=== PATIENT | female | born 1995 | race Asian ===

== ENCOUNTER → 2020-01-01 12:28 | Outpatient (CLI) | payer OTHER, SELFPAY ==
--- NOTE | 2020-01-01 12:31 | DI.US.S_ITS ---
PROCEDURE: US OB FOLLOW UP INDICATIONS: FOLLOW-UP OUTSIDE ULTRASOUND OUTSIDE/PRIOR DATING DATA: Last menstrual period (LMP): 07/20/2019 . LMP-based estimated date of delivery (SHAD): 05/05/2020 . First dating scan (date and location): 12/02/2019 . Estimated date of delivery (SHAD) from first dating scan: 04/25/2020 . TECHNIQUE: Real-time scanning was performed of the fetus, with image documentation and biometric measurements. COMPARISON: Outside Facility, [facility], US OB > 14 WEEKS, 12/04/2019, 14:32. FINDINGS: General: A single living intrauterine gestation is present. Presentation: vertex. Placenta: Placental position is posterior , without previa. Amniotic fluid index: 12.2 cm, normal range is 5-24 cm. heart rate: 147 beats per minute. Maternal cervical canal: 3.7 cm long. Normal lower limit is 2.5 cm. Estimated gestational age from initial scan: 23 weeks 4 days Normal appearance of the four-chamber heart and cardiac outflow tracts. IMPRESSION: 1. Single living IUP redemonstrated and today's exam demonstrates normal appearance of the four-chamber heart and cardiac outflow tracts. Dictated by: Jorge SKY Interpreted: Gómez Polk MD on 01/01/2020 at 16:21 Approved by: Gómez Polk M.D. on 01/02/2020 at 11:42
== END ==
PROVIDERS: Referring Provider Obstetrics & Gynecology; Visit Provider Obstetrics & Gynecology
DX: Z36.2 Encounter for other antenatal screening follow-up (principal); Z3A.23 23 weeks gestation of pregnancy
CPT/HCPCS: 76816

== ENCOUNTER → 2020-01-27 10:02 | Outpatient (CLI) | payer OTHER, SELFPAY ==
[2020-01-27 12:40] LABS: GTT (PREG) 1 Hour PP 50gm Dose 137 mg/dL (76-139)
[2020-01-27 13:02] LABS: Hematocrit 35.6 % (36-46); Hemoglobin 12.1 g/dL (12.0-16.0)
== END ==
PROVIDERS: Referring Provider Obstetrics & Gynecology; Visit Provider Obstetrics & Gynecology
DX: Z34.02 Encounter for supervision of normal first pregnancy, second trimester (principal); Z3A.24 24 weeks gestation of pregnancy
CPT/HCPCS: 36415; 82950; 85014; 85018; 86850

== ENCOUNTER 2020-03-22 15:27 | Outpatient (CLI) | payer OTHER, SELFPAY ==
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
== END 2020-03-22 16:05 | disposition home or self-care (01) ==
LOC: LABOR 16:02 → OB 03-25 15:08
PROVIDERS: PCP Obstetrics & Gynecology; Referring Provider Obstetrics & Gynecology; Visit Provider Obstetrics & Gynecology
DX: O36.8330 Maternal care for abnormalities of the fetal heart rate or rhythm, third trimester, not applicable or unspecified (principal); Z3A.35 35 weeks gestation of pregnancy
CPT/HCPCS: 59025; G0378; G0379

== ENCOUNTER 2020-03-25 00:15 | Outpatient (CLI) | payer OTHER, SELFPAY ==
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
== END 2020-03-25 01:30 | disposition home or self-care (01) ==
LOC: LABOR 00:31 → OB 15:08
PROVIDERS: PCP Obstetrics & Gynecology; Referring Provider Obstetrics & Gynecology; Visit Provider Family Medicine
DX: O36.8130 Decreased fetal movements, third trimester, not applicable or unspecified (principal); Z3A.35 35 weeks gestation of pregnancy
CPT/HCPCS: 59025; G0378; G0379

== ENCOUNTER 2020-03-29 16:44 | Inpatient (IN) | payer OTHER, SELFPAY ==
--- NOTE | 2020-03-29 17:02 | DI.US.S_ITS ---
PROCEDURE: US OB BIOPHYSICAL PROFILE INDICATIONS: HTN OUTSIDE/PRIOR DATING DATA: LMP-based estimated date of delivery (SHAD): May 05, 2020 . First dating scan (date and location): December 02, 2019, [facility] Estimated date of delivery (SHAD) from first dating scan: April 25, 2020 TECHNIQUE: Real-time scanning was performed of the fetus, with image documentation and biometric measurements. Biophysical profile was also obtained. Endovaginal scanning: Not performed COMPARISON: Talha Barnard, , US OB >= 14 WEEKS FETUS, 03/22/2020, 15:08. FINDINGS: General: A single living intrauterine gestation is present. Presentation: Vertex Placenta: Placental position is posterior fundal , without previa. Lower placental edge 2 cm or less from internal cervical os qualifies as low lying placenta. Amniotic fluid index: 12.5 cm, normal range is 5-24 cm. heart rate: 136 beats per minute. Maternal cervical canal: Not characterized Biophysical profile: Tone: 2 points. Movement: 2 points. Respiration: 2 points. Largest pocket of fluid: 2 points. IMPRESSION: 1. 8/8 biophysical profile Dictated by: Larissa Shahid M.D. on 03/29/2020 at 18:31 Approved by: Larissa Shahid M.D. on 03/29/2020 at 18:34
[2020-03-29 17:28] LABS: Add Manual Diff / Slide Review NO; Basophils Absolute Auto 0 /uL (0-100); Basophils Percent Auto 0.2 % (0-2); Eosinophils Absolute Auto 700 /uL (0-450); Eosinophils Percent Auto 5.9 % (2-4); Hematocrit 34.5 % (36-46); Hemoglobin 11.5 g/dL (12.0-16.0); Lymphocytes Absolute Auto 2400 /uL (1100-4500); Lymphocytes Percent Auto 20.7 % (25-40); Mean Corpuscular HGB Conc 33.2 % (30-36); Mean Corpuscular Volume 84.3 fL (80-100); Monocytes Absolute Auto 800 /uL (0-900); Monocytes Percent Auto 7.1 % (3-14); Neutrophils Absolute Auto 7600 /uL (1500-7000); Neutrophils Percent Auto 66.1 % (50-75); Platelet Count 215 X10^3/uL (150-400); Red Blood Cell Count 4.09 X10^6/uL (4.0-5.2); Red Cell Distribution Width 13.6 % (11.6-14.8); White Blood Cell Count 11.6 X10^3/uL (4.5-11.0)
[2020-03-29 17:29] LABS: Creatinine Urine Random 40.6 mg/dL; Protein (Total) Urine Random 20 mg/dL (0-12); Protein Creatinine Ratio Urine 0.49 GRAM/24H
[2020-03-29 17:46] LABS: Aspartate Aminotransferase 19 IU/L (14-36); BUN Creatinine Ratio 4.4 (6-22); Blood Urea Nitrogen 3 mg/dL (7-17); Estimated Glomerular Filt Rate > 60.0 mL/min (>60); Uric Acid 5.4 mg/dL (2.5-6.2)
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
[2020-03-29 19:33] VITALS: BP 130/90; PULSE 99
[2020-03-29] MEDS: LABETALOL 100 MG TABLET PO ×2 (19:33→19:41)
[2020-03-29] MEDS: BETAMETHASONE 30 MG/5 ML MDV 12 MG IM (19:44)
[2020-03-29] MEDS: ACETAMINOPHEN 325 MG TABLET 650 MG PO (21:46)
[2020-03-30] MEDS: ZOLPIDEM 5 MG TABLET PO (00:13)
[2020-03-30 06:39] LABS: Add Manual Diff / Slide Review NO; Basophils Absolute Auto 0 /uL (0-100); Basophils Percent Auto 0.1 % (0-2); Eosinophils Absolute Auto 0 /uL (0-450); Hematocrit 32.7 % (36-46); Hemoglobin 10.7 g/dL (12.0-16.0); Lymphocytes Absolute Auto 1400 /uL (1100-4500); Lymphocytes Percent Auto 10.9 % (25-40); Mean Corpuscular HGB Conc 32.6 % (30-36); Mean Corpuscular Hemoglobin 27.6 PG (26-34); Mean Corpuscular Volume 84.6 fL (80-100); Monocytes Absolute Auto 300 /uL (0-900); Neutrophils Absolute Auto 11300 /uL (1500-7000); Platelet Count 241 X10^3/uL (150-400); Red Blood Cell Count 3.87 X10^6/uL (4.0-5.2); Red Cell Distribution Width 13.9 % (11.6-14.8)
[2020-03-30 06:45] LABS: Albumin 3.5 g/dL (3.5-5.0); Albumin Globulin Ratio 1.2 (1.0-2.8); Alkaline Phosphatase 164 U/L (38-126); Aspartate Aminotransferase 21 IU/L (14-36); BUN Creatinine Ratio 4.8 (6-22); Bilirubin Total 0.4 mg/dL (0.2-1.3); Blood Urea Nitrogen 3 mg/dL (7-17); Calcium 8.6 mg/dL (8.4-10.2); Carbon Dioxide 21 mmol/L (22-32); Chloride 106 mmol/L (98-107); Estimated Glomerular Filt Rate > 60.0 mL/min (>60); Glucose 216 mg/dL (70-100); HEMOLYSIS < 15 (0-50); Potassium 3.7 mmol/L (3.4-5.1); Sodium 134 mmol/L (137-145); Total Protein 6.5 g/dL (6.3-8.2); Uric Acid 5.7 mg/dL (2.5-6.2)
[2020-03-30 06:51] LABS: Alanine Aminotransferase 20 IU/L (<35)
--- NOTE | 2020-03-30 09:30 | PM.PN.1 ---
Subjective Subjective Date Patient Seen: 03/30/20 Time Patient Seen: 09:31 Interval history: Patient was admitted for monitoring for possible preeclampsia. She slept well last night and denies headaches and scotomata this morning. Exam Vital Signs (past 8 hours): Blood pressure 108/57, pulse of 129, temperature 36.9? Narrative Exam Narrative: HEENT exam within normal limits. Abdomen is soft, nontender. Extremities with +1 edema. DTRs are increased with 2 beats of clonus. Objective Labs Result Diagrams: 03/30/20 06:20 03/30/20 06:20 Labs: Laboratory Results - last 24 hr 03/29/20 03/29/20 03/29/20 16:50 17:23 17:23 WBC 11.6 H RBC 4.09 Hgb 11.5 L Hct 34.5 L MCV 84.3 MCH 28.0 MCHC 33.2 RDW 13.6 Plt Count 215 Neut % (Auto) 66.1 Lymph % (Auto) 20.7 L [place] % (Auto) 7.1 Eos % (Auto) 5.9 H Baso % (Auto) 0.2 Neut # (Auto) 7600 H Lymph # (Auto) 2400 [place] # (Auto) 800 Eos # (Auto) 700 H Baso # (Auto) 0 Sodium Potassium Chloride Carbon Dioxide BUN 3 L Creatinine 0.68 Estimated GFR > 60.0 BUN/Creatinine Ratio 4.4 L Glucose Uric Acid 5.4 Calcium Total Bilirubin AST 19 ALT Alkaline Phosphatase Total Protein Albumin Globulin Albumin/Globulin Ratio U Random Total Protein 20 H Urine Creatinine 40.6 Protein/Creatinin Ratio 0.49 Blood Type Antibody Screen 03/30/20 03/30/20 03/30/20 06:20 06:20 06:20 WBC 13.0 H RBC 3.87 L Hgb 10.7 L Hct 32.7 L MCV 84.6 MCH 27.6 MCHC 32.6 RDW 13.9 Plt Count 241 Neut % (Auto) 87.0 H D Lymph % (Auto) 10.9 L [place] % (Auto) 2.0 L Eos % (Auto) 0.0 L Baso % (Auto) 0.1 Neut # (Auto) 58460 H Lymph # (Auto) 1400 [place] # (Auto) 300 Eos # (Auto) 0 Baso # (Auto) 0 Sodium 134 L Potassium 3.7 Chloride 106 Carbon Dioxide 21 L BUN 3 L Creatinine 0.62 Estimated GFR > 60.0 BUN/Creatinine Ratio 4.8 L Glucose 216 H Uric Acid 5.7 Calcium 8.6 Total Bilirubin 0.4 AST 21 ALT 20 Alkaline Phosphatase 164 H Total Protein 6.5 Albumin 3.5 Globulin 3.0 Albumin/Globulin Ratio 1.2 U Random Total Protein Urine Creatinine Protein/Creatinin Ratio Blood Type A Positive Antibody Screen Negative Assessment & Plan Assessment and plan (1) Preeclampsia: Qualifiers: Trimester: third trimester Qualified Code(s): O14.93 - Unspecified pre-eclampsia, third trimester Status: Acute Assessment & Plan narrative: Patient who had decrease in symptoms of preeclampsia but no increased DTRs with clonus. Decision to begin induction.
[2020-03-30 10:50] LABS: COVID19 -Nasal RAPID Negative (Negative)
[2020-03-30] MEDS: miSOPROStoL 25 MCG TABLET VAG ×3 (11:10→19:40)
--- NOTE | 2020-03-30 16:25 | P.PN_ITS ---
Subjective Subjective Date Patient Seen: 03/30/20 Time Patient Seen: 16:25 Interval history: Patient was started on Prostin induction for preeclampsia. She denies headaches, scotomata, epigastric pain. She is having some mild cramping with Prostin. Good movement. Exam Vital Signs (past 8 hours): Blood pressure 112/61, temperature 36.9? Narrative Exam Narrative: Abdomen is soft, nontender. Extremities with trace edema and nontender. Patient with brisk reflexes and 1+ clonus Objective Labs Result Diagrams: 03/30/20 06:20 03/30/20 06:20 Labs: Laboratory Results - last 24 hr 03/29/20 03/29/20 03/29/20 16:50 17:23 17:23 WBC 11.6 H RBC 4.09 Hgb 11.5 L Hct 34.5 L MCV 84.3 MCH 28.0 MCHC 33.2 RDW 13.6 Plt Count 215 Neut % (Auto) 66.1 Lymph % (Auto) 20.7 L [place] % (Auto) 7.1 Eos % (Auto) 5.9 H Baso % (Auto) 0.2 Neut # (Auto) 7600 H Lymph # (Auto) 2400 [place] # (Auto) 800 Eos # (Auto) 700 H Baso # (Auto) 0 Sodium Potassium Chloride Carbon Dioxide BUN 3 L Creatinine 0.68 Estimated GFR > 60.0 BUN/Creatinine Ratio 4.4 L Glucose Uric Acid 5.4 Calcium Total Bilirubin AST 19 ALT Alkaline Phosphatase Total Protein Albumin Globulin Albumin/Globulin Ratio U Random Total Protein 20 H Urine Creatinine 40.6 Protein/Creatinin Ratio 0.49 COVID-19 PCR Blood Type Antibody Screen 03/30/20 03/30/20 03/30/20 06:20 06:20 06:20 WBC 13.0 H RBC 3.87 L Hgb 10.7 L Hct 32.7 L MCV 84.6 MCH 27.6 MCHC 32.6 RDW 13.9 Plt Count 241 Neut % (Auto) 87.0 H D Lymph % (Auto) 10.9 L [place] % (Auto) 2.0 L Eos % (Auto) 0.0 L Baso % (Auto) 0.1 Neut # (Auto) 51266 H Lymph # (Auto) 1400 [place] # (Auto) 300 Eos # (Auto) 0 Baso # (Auto) 0 Sodium 134 L Potassium 3.7 Chloride 106 Carbon Dioxide 21 L BUN 3 L Creatinine 0.62 Estimated GFR > 60.0 BUN/Creatinine Ratio 4.8 L Glucose 216 H Uric Acid 5.7 Calcium 8.6 Total Bilirubin 0.4 AST 21 ALT 20 Alkaline Phosphatase 164 H Total Protein 6.5 Albumin 3.5 Globulin 3.0 Albumin/Globulin Ratio 1.2 U Random Total Protein Urine Creatinine Protein/Creatinin Ratio COVID-19 PCR Blood Type A Positive Antibody Screen Negative 03/30/20 10:30 WBC RBC Hgb Hct MCV MCH MCHC RDW Plt Count Neut % (Auto) Lymph % (Auto) [place] % (Auto) Eos % (Auto) Baso % (Auto) Neut # (Auto) Lymph # (Auto) [place] # (Auto) Eos # (Auto) Baso # (Auto) Sodium Potassium Chloride Carbon Dioxide BUN Creatinine Estimated GFR BUN/Creatinine Ratio Glucose Uric Acid Calcium Total Bilirubin AST ALT Alkaline Phosphatase Total Protein Albumin Globulin Albumin/Globulin Ratio U Random Total Protein Urine Creatinine Protein/Creatinin Ratio COVID-19 PCR Negative Blood Type Antibody Screen Assessment & Plan Assessment and plan (1) Preeclampsia: Qualifiers: Trimester: third trimester Qualified Code(s): O14.93 - Unspecified pre- eclampsia, third trimester Status: Acute Assessment & Plan narrative: 36 weeks gestation with concerns for preeclampsia. She is started on Prostin induction. Other than brisk reflexes patient has had resolution of her headaches and scotomata. Will continue to monitor.
[2020-03-30] MEDS: BETAMETHASONE 30 MG/5 ML MDV 12 MG IM (19:38)
[2020-03-31 06:01] LABS: Add Manual Diff / Slide Review NO; Basophils Absolute Auto 0 /uL (0-100); Basophils Percent Auto 0.1 % (0-2); Eosinophils Absolute Auto 0 /uL (0-450); Hemoglobin 10.8 g/dL (12.0-16.0); Lymphocytes Absolute Auto 2300 /uL (1100-4500); Lymphocytes Percent Auto 11.3 % (25-40); Mean Corpuscular HGB Conc 32.8 % (30-36); Mean Corpuscular Hemoglobin 28.3 PG (26-34); Mean Corpuscular Volume 86.2 fL (80-100); Monocytes Absolute Auto 800 /uL (0-900); Monocytes Percent Auto 3.9 % (3-14); Neutrophils Absolute Auto 17000 /uL (1500-7000); Neutrophils Percent Auto 84.7 % (50-75); Platelet Count 229 X10^3/uL (150-400); Red Blood Cell Count 3.82 X10^6/uL (4.0-5.2); Red Cell Distribution Width 13.7 % (11.6-14.8); White Blood Cell Count 20.1 X10^3/uL (4.5-11.0)
[2020-03-31 06:16] LABS: Albumin 3.6 g/dL (3.5-5.0); Albumin Globulin Ratio 1.2 (1.0-2.8); Alkaline Phosphatase 166 U/L (38-126); Aspartate Aminotransferase 23 IU/L (14-36); BUN Creatinine Ratio 6.3 (6-22); Bilirubin Total 0.2 mg/dL (0.2-1.3); Bilirubin Unconjugated 0.1 mg/dL (0.0-1.1); Blood Urea Nitrogen 4 mg/dL (7-17); Calcium 8.7 mg/dL (8.4-10.2); Carbon Dioxide 15 mmol/L (22-32); Chloride 108 mmol/L (98-107); Estimated Glomerular Filt Rate > 60.0 mL/min (>60); Glucose 206 mg/dL (70-100); HEMOLYSIS < 15 (0-50); Potassium 4.1 mmol/L (3.4-5.1); Sodium 136 mmol/L (137-145); Total Protein 6.6 g/dL (6.3-8.2)
[2020-03-31 06:22] LABS: Alanine Aminotransferase 20 IU/L (<35)
[2020-03-31] MEDS: CALCIUM CARBONATE 500 MG TAB PO ×4 (07:04→22:33)
--- NOTE | 2020-03-31 07:48 | PM.OBPNLAB ---
Date/Time Date Patient Seen: 03/31/20 Time Patient Seen: 07:48 Pain Control Pain control: tolerating well Comments: Patient denies headaches, scotomata, epigastric pain. Only feeling minor are discomfort with contractions yesterday not this a.m. Patient continues to have brisk reflexes with clonus. Pelvic Exam Dilation (cm): 0 Effacement (%): 50 station: -2 Amniotic membrane status: Intact Contractions Contractions on admission: irregular Monitor mode: External Contraction pattern: Irregular Contraction intensity: Mild Status status: Category l Monitor Accelerations: Present Monitor Decelerations: Absent Monitor Variability: Moderate Assessment and Plan Assessment: induction ongoing Plan: begin patient augmentation Comments: Will start magnesium sulfate if patient develops any other symptoms.
[2020-03-31] MEDS: LACTATED RINGERS 1,000 ML 100 ML IV ×2 (11:00→20:16)
[2020-03-31] MEDS: OXYTOCIN PREMIX 30 UNIT/500 ML PLAST..BAG IV (11:33)
--- NOTE | 2020-03-31 13:54 | PM.OBPNLAB ---
Date/Time Date Patient Seen: 03/31/20 Time Patient Seen: 13:54 Pain Control Pain control: tolerating well Pelvic Exam Dilation (cm): 0 Effacement (%): 50 station: -2 Amniotic membrane status: Intact Comments: Patient not rechecked Contractions Monitor mode: External Pitocin rate (mU/min): 12 Contraction frequency (min): 4 Contraction duration (min): 1 Contraction pattern: Regular Contraction intensity: Mild Status status: Category l Heart Rate Baseline: 130 Monitor Accelerations: Present Monitor Decelerations: Absent Monitor Variability: Moderate Assessment and Plan Assessment: induction ongoing Plan: continuous present management Comments: Patient still denies headaches, scotomata, epigastric pain. Blood pressures are good. Continues to have increased reflexes.
[2020-03-31] MEDS: CALCIUM CARBONATE 500 MG TAB 1000 MG PO (16:51)
[2020-03-31] MEDS: FAMOTIDINE 20 MG/50 ML PIGGYBACK 200 MG IV (22:55)
[2020-04-01] MEDS: ACETAMINOPHEN 325 MG TABLET 650 MG PO (01:10)
[2020-04-01] MEDS: LACTATED RINGERS 1,000 ML 100 ML IV ×4 (05:01→19:00)
--- NOTE | 2020-04-01 07:30 | PM.OBPNLAB ---
Date/Time Date Patient Seen: 04/01/20 Time Patient Seen: 07:30 Pain Control Pain control: tolerating well Pelvic Exam Dilation (cm): 5 Effacement (%): 80 station: -1 Amniotic membrane status: Intact Comments: Attempted AROM Contractions Contractions on admission: regular Monitor mode: External Pitocin rate (mU/min): 29 Contraction frequency (min): 3 Contraction duration (min): 1 Contraction pattern: Regular Contraction intensity: Moderate Status status: Category l Heart Rate Baseline: 145 Monitor Accelerations: Present Monitor Decelerations: Absent Monitor Variability: Moderate Assessment and Plan Assessment: induction ongoing Comments: Patient denies headaches, scotomata, epigastric pain.
--- NOTE | 2020-04-01 11:00 | PM.OBPNLAB ---
Date/Time Date Patient Seen: 04/01/20 Time Patient Seen: 11:12 Pain Control Pain control: tolerating well Comments: Patient sleeping through contractions. Vital signs stable, 100s to 130s over 60s to 80s. Pelvic Exam Dilation (cm): 4 Effacement (%): 100 station: -1 Amniotic membrane status: Ruptured (AROM for scant clear fluid) Contractions Monitor mode: External Pitocin rate (mU/min): 31 Contraction frequency (min): 3 Contraction pattern: Regular Contraction intensity: Moderate Status status: Category l Heart Rate Baseline: 145 Monitor Accelerations: Present Monitor Decelerations: Absent Monitor Variability: Moderate Assessment and Plan Assessment: induction ongoing Plan: continuous present management Comments: IUPC inserted. Patient s/p pitocin washout x1 overnight, on 31u pitocin, sleeping through contractions. Discussed induction of labor with patient, options going forward.
[2020-04-01 11:11] LABS: Add Manual Diff / Slide Review NO; Basophils Absolute Auto 0 /uL (0-100); Basophils Percent Auto 0.2 % (0-2); Eosinophils Absolute Auto 0 /uL (0-450); Hematocrit 32.6 % (36-46); Hemoglobin 10.8 g/dL (12.0-16.0); Lymphocytes Absolute Auto 2200 /uL (1100-4500); Lymphocytes Percent Auto 13.7 % (25-40); Mean Corpuscular HGB Conc 33.1 % (30-36); Mean Corpuscular Hemoglobin 28.1 PG (26-34); Mean Corpuscular Volume 85.1 fL (80-100); Monocytes Absolute Auto 1300 /uL (0-900); Monocytes Percent Auto 8.1 % (3-14); Neutrophils Absolute Auto 12300 /uL (1500-7000); Platelet Count 224 X10^3/uL (150-400); Red Blood Cell Count 3.84 X10^6/uL (4.0-5.2); Red Cell Distribution Width 14.1 % (11.6-14.8); White Blood Cell Count 15.8 X10^3/uL (4.5-11.0)
[2020-04-01 11:23] LABS: Alanine Aminotransferase 17 IU/L (<35); Albumin 3.3 g/dL (3.5-5.0); Albumin Globulin Ratio 1.1 (1.0-2.8); Alkaline Phosphatase 178 U/L (38-126); Aspartate Aminotransferase 23 IU/L (14-36); BUN Creatinine Ratio 10.3 (6-22); Bilirubin Total 0.4 mg/dL (0.2-1.3); Blood Urea Nitrogen 7 mg/dL (7-17); Calcium 8.4 mg/dL (8.4-10.2); Carbon Dioxide 22 mmol/L (22-32); Chloride 107 mmol/L (98-107); Estimated Glomerular Filt Rate > 60.0 mL/min (>60); Glucose 107 mg/dL (70-100); HEMOLYSIS < 15 (0-50); Potassium 3.7 mmol/L (3.4-5.1); Sodium 135 mmol/L (137-145); Total Protein 6.3 g/dL (6.3-8.2)
[2020-04-01] MEDS: OXYTOCIN PREMIX 30 UNIT/500 ML PLAST..BAG IV (14:09)
--- NOTE | 2020-04-01 17:58 | PM.OBPNLAB ---
Date/Time Date Patient Seen: 04/01/20 Time Patient Seen: 17:58 Pain Control Pain control: epidural Pelvic Exam Dilation (cm): 5 Effacement (%): 100 station: -1 Amniotic membrane status: Ruptured (AROM for scant clear fluid) Comments: bloody fluid, old clot. VS 100s6- Contractions Monitor mode: External Contraction frequency (min): 3 Contraction pattern: Regular Contraction intensity: Moderate Status status: Category l Heart Rate Baseline: 155 Monitor Accelerations: Present Monitor Decelerations: Absent Monitor Variability: Moderate Comments: periods of minimal variability Assessment and Plan Plan: Comments: This patient presented with preeclampsia, with severe features that resolved prior to admission. She was closely monitored and labor was induced, though magnesium sulfate was held given the blood pressures after admission. She underwent 24 hours of cervical ripening with cytotec, then pitocin augmentation for a total of 30 hours, with AROM for 10 and adequate contractions on pitocin with an IUPC. The patient has made no cervical change since 11AM, and we discussed risks and benefits of ongoing induction vs. section. We discussed that odds of progression to active labor are low, and that I have concerns about the decreasing though still moderate heart rate variability and bloody amniotic fluid in the setting of prolonged induction with no cervical change. We discussed risk of infection, bleeding and hemorrhage with possible risk fo transfusion, damage to bowel, bladder, and other surrounding organs, and risks to the next . The patient and her partner vocalized understanding, all questions were answered, and informed consent was obtained.
[2020-04-01] MEDS: AZITHROMYCIN 500 MG in DEXTROSE 5% IN WATER 250 ML IV (18:14)
[2020-04-01] MEDS: CEFAZOLIN 2 GM/100 ML FROZ.PIGGY IV (18:51)
--- NOTE | 2020-04-01 18:57 | SUR.OPER ---
Supine on Padded OR bed, head on pillow, safety belt at thigh, arms secured on padded arm boards at <90 degrees abduction. Bump under right buttock. Legs uncrossed with pillow under knees, gel pad to heels, tape over blanket to lower legs.
--- NOTE | 2020-04-01 19:17 | SUR.OPER ---
live male at 1902. Initial cry noted. Respiratory compromise shortly after, see L&D and DIRECTOR PERIOPERATIVE notes.
[2020-04-01] MEDS: miSOPROStoL 200 MCG TABLET 1000 MCG VAG (19:58)
[2020-04-01 20:06] VITALS: BP 126/62; PULSE 123; RESP 13; TEMP 37.3; O2SAT 97
[2020-04-01 20:12] VITALS: BP 132/78; PULSE 111; RESP 13; TEMP 36.7; O2SAT 96
--- NOTE | 2020-04-01 20:16 | PM.OP.1 ---
Operative Date/Time/Diagnoses Date of procedure: 04/01/20 Time of procedure: 20:16 Pre-op diagnosis: arrest of dilation Post-op diagnosis: same Procedure & Clinicians Procedure: primary section Same procedure as scheduled: Yes Indications: arrest of dilation Surgeon: Gabby Ochoa Gambling Floor Supervisor: Lilly Schneider Anesthesia Type: Epidural Operative Notes Findings: normal uterus, tubes, and ovaries Closure Type: primary Specimen(s): none sent Estimated Blood Loss (mL): 500 Blood products transfused: none Procedure in detail: EBL: 500ccs Fluids:1550ccs UOP: 650ccs Findings: Male in cephalic presentation, Apgars 8+5, weight 2946g, normal uterus, tubes, ovaries. Procedures: The patient was taken to the operating room where epidural anesthesia was bolused and found to be adequate. She was prepped and draped in the normal sterile fashion in the dorsal supine position with a leftward tilt. A Pfannenstiel skin incision was made with a scalpel and carried through to the underlying layer of fascia. The fascia was incised in the midline and the incision extended laterally with Cole scissors. The superior aspect of this incision was grasped with Linda clamps, elevated. and the underlying rectus muscles dissected off bluntly. Attention was then turned to the inferior aspect of this incision which, in a similar fashion, was grasped, tented up with the Linda clamps, and the rectus muscles dissected off bluntly and with curved cole scissors. The rectus muscles were then in the midline, and the peritoneum identified, tented up, and entered sharply with Metzenbaum scissors. The peritoneal incision was extended superiorly and inferiorly with good visualization of the bladder. The bladder blade was inserted and the vesico-uterine peritoneum identified, grasped with pickups, and entered sharply with the Metzenbaum scissors. This incision was extended laterally, and the bladder flap created digitally. The bladder blade was then reinserted and the lower uterine segment incised in transverse fashion with the scalpel. The uterine incision was bluntly extended laterally. The bladder blade was removed, and the infant's head delivered atraumatically. After 30 seconds of delayed cord clamping, the cord was clamped and cut. The nose and mouth were suctioned as needed with a bulb syringe, and the was handed off to awaiting pediatricians. The placenta was then removed spontaneously, and the uterus was exteriorized and cleared of all clots and debris. The uterine incision was repaired with 1-0 chromic in a running, locked fashion a 2nd layer of the same suture was used to obtain excellent hemostasis. The tubes and ovaries were inspected and found to be normal. The uterus was returned to the abdomen, and the gutters were cleared of all clots and debris. The bladder flap was closed in a running fashion with 2-0 vicryl. The peritoneum was closed with 3-0 Vicryl, and the fascia reapproximated with 0 Vicryl in a running fashion. The subcutaneous layer was placed with 3 0 Vicryl in an interrupted fashion and the skin was closed with 4-0 biosyn in a running fashion. The patient tolerated the procedure well sponge lap and needle counts were correct x2. 2 g of Ancef and 500mg of Azithromycin were given at commencement of the case. A vaginal prep was performed with betadine. The patient was taken to the recovery room in stable condition. Complications: none Post-operative Condition: stable Disposition: PACU Plan for aftercare: Routine postoperative care
[2020-04-01 20:17] VITALS: BP 123/81; PULSE 104; RESP 14; TEMP 36.8; O2SAT 98
[2020-04-02] MEDS: KETOROLAC 30 MG/ML VIAL IV ×3 (02:00→13:59)
[2020-04-02 05:31] LABS: Add Manual Diff / Slide Review NO; Basophils Absolute Auto 0 /uL (0-100); Basophils Percent Auto 0.1 % (0-2); Eosinophils Absolute Auto 0 /uL (0-450); Eosinophils Percent Auto 0.3 % (2-4); Hematocrit 25.7 % (36-46); Hemoglobin 8.6 g/dL (12.0-16.0); Lymphocytes Absolute Auto 2300 /uL (1100-4500); Lymphocytes Percent Auto 14.6 % (25-40); Mean Corpuscular HGB Conc 33.4 % (30-36); Mean Corpuscular Hemoglobin 28.4 PG (26-34); Monocytes Absolute Auto 1800 /uL (0-900); Monocytes Percent Auto 11.2 % (3-14); Neutrophils Absolute Auto 11900 /uL (1500-7000); Neutrophils Percent Auto 73.8 % (50-75); Platelet Count 192 X10^3/uL (150-400); Red Blood Cell Count 3.03 X10^6/uL (4.0-5.2); Red Cell Distribution Width 13.8 % (11.6-14.8); White Blood Cell Count 16.1 X10^3/uL (4.5-11.0)
[2020-04-02 05:41] LABS: Alanine Aminotransferase 16 IU/L (<35); Albumin 2.5 g/dL (3.5-5.0); Albumin Globulin Ratio 1.1 (1.0-2.8); Alkaline Phosphatase 127 U/L (38-126); Aspartate Aminotransferase 22 IU/L (14-36); BUN Creatinine Ratio 8.2 (6-22); Bilirubin Total 0.2 mg/dL (0.2-1.3); Blood Urea Nitrogen 6 mg/dL (7-17); Calcium 7.8 mg/dL (8.4-10.2); Carbon Dioxide 26 mmol/L (22-32); Chloride 105 mmol/L (98-107); Estimated Glomerular Filt Rate > 60.0 mL/min (>60); Globulin 2.3 g/dL (1.7-4.1); Glucose 134 mg/dL (70-100); HEMOLYSIS < 15 (0-50); Potassium 3.9 mmol/L (3.4-5.1); Sodium 133 mmol/L (137-145); Total Protein 4.8 g/dL (6.3-8.2)
--- NOTE | 2020-04-02 05:48 | PM.OBPN.1 ---
Subjective - OB Subjective Patient comments: pain well controlled and tolerating diet Blessing baby status: doing well and bottle feeding well Blessing feeding status: breast and bottle feeding Narrative: This patient presented for evaluation and was induced for preeclampsia with severe features. After 24 hours of cervical ripening and 30 hours of pitocin, arrest of dilation was diagnosed and she was taken for primary section. Her section was complicated by initial uterine atony, and she received 30mU of pitocin and 1000 mcg of rectal cytotec to good effect. Her blood pressures did not require medication during the induction or , and she did not receive magnesium sulfate. Her scotomata and headaches resolved during her induction. Date Patient Seen: 04/02/20 Time Patient Seen: 05:49 Interval history: The patient is doing well this AM, with good pain control, no CELIS, visual changes, chest pain, SOB, or calf pain. Well controlled incisional pain, good urine output, tolerating PO. Mild to moderate lochia. Exam Vital Signs (past 8 hours): 123/77, HR 90, T 98.3F Oxygen Delivery Method Room Air Oxygen Flow Rate 0 Const General: cooperative, healthy appearing and comfortable Other: Sitting up in bed, cuddling baby Resp Effort & Inspection: normal respiratory effort Auscultation: clear to auscultation bilaterally Cardio Rate: regular rate Rhythm: regular rhythm GI Inspection: incision (c/d/i) Palpation: soft and No tender Other: Distended but soft and quite tympanic, nontender Skin General: no rashes or lesions noted Extrem General: normal to inspection Other: SCDs on and running Objective Labs Result Diagrams: 04/02/20 05:20 04/02/20 05:20 Labs: Laboratory Results - last 24 hr 04/01/20 04/01/20 04/02/20 11:05 11:05 05:20 WBC 15.8 H 16.1 H RBC 3.84 L 3.03 L Hgb 10.8 L 8.6 L Hct 32.6 L 25.7 L MCV 85.1 85.0 MCH 28.1 28.4 MCHC 33.1 33.4 RDW 14.1 13.8 Plt Count 224 192 Neut % (Auto) 78.0 H 73.8 Lymph % (Auto) 13.7 L 14.6 L [place] % (Auto) 8.1 11.2 Eos % (Auto) 0.0 L 0.3 L Baso % (Auto) 0.2 0.1 Neut # (Auto) 99017 H 25108 H Lymph # (Auto) 2200 2300 [place] # (Auto) 1300 H 1800 H Eos # (Auto) 0 0 Baso # (Auto) 0 0 Sodium 135 L Potassium 3.7 Chloride 107 Carbon Dioxide 22 BUN 7 Creatinine 0.68 Estimated GFR > 60.0 BUN/Creatinine Ratio 10.3 Glucose 107 H Calcium 8.4 Total Bilirubin 0.4 AST 23 ALT 17 Alkaline Phosphatase 178 H Total Protein 6.3 Albumin 3.3 L Globulin 3.0 Albumin/Globulin Ratio 1.1 04/02/20 05:20 WBC RBC Hgb Hct MCV MCH MCHC RDW Plt Count Neut % (Auto) Lymph % (Auto) [place] % (Auto) Eos % (Auto) Baso % (Auto) Neut # (Auto) Lymph # (Auto) [place] # (Auto) Eos # (Auto) Baso # (Auto) Sodium 133 L Potassium 3.9 Chloride 105 Carbon Dioxide 26 BUN 6 L Creatinine 0.73 Estimated GFR > 60.0 BUN/Creatinine Ratio 8.2 Glucose 134 H Calcium 7.8 L Total Bilirubin 0.2 AST 22 ALT 16 Alkaline Phosphatase 127 H Total Protein 4.8 L Albumin 2.5 L Globulin 2.3 Albumin/Globulin Ratio 1.1 Assessment & Plan Assessment and Plan (1) Preeclampsia: Status: Acute (2) delivery delivered: Status: Acute Plan day: 1 plan OB: routine postop care Comments: This patient is recovering well s/p her primary section, with initial tachycardia resolved after rest and food with no signs of infection or ongoing bleeding. Will continue to closely monitor VS, CBC with expected hgb drop this AM. Baby doing well. Will hold labetalol given normotension since OR. - CBC, CMP wnl this AM with expected hgb drop - SCDs until ambulation, vanessa removal per protocol, regular diet - given prolonged induction and history of RA increase risk of VTE, for lovenox later this AM as long as lochia well controlled and no signs of ongoing bleeding - holding PO labetalol pending monitoring of VS prior to discharge Time Spent With Patient Time: Total time spent is greater than 50% in coordination of care (as documented) at patient's floor/unit and/or counseling patient: Time with patient: 15-24 minutes
[2020-04-02] MEDS: OXYCODONE IR 5 MG TABLET PO (07:52)
[2020-04-02] MEDS: DOCUSATE 250 MG CAPSULE PO (07:53)
[2020-04-02] MEDS: OXYCODONE IR 10 MG TABLET PO ×4 (11:52→23:48)
[2020-04-02] MEDS: LANOLIN OINT 7 GM 1 APPLIC TOP (20:08)
[2020-04-02] MEDS: ENOXAPARIN 40 MG/0.4 ML SYRINGE SUBCUT (21:35)
[2020-04-03] MEDS: ACETAMINOPHEN 325 MG TABLET 650 MG PO ×2 (00:23→08:41)
[2020-04-03] MEDS: OXYCODONE IR 5 MG TABLET PO ×2 (04:32→08:41)
[2020-04-03 08:17] LABS: Add Manual Diff / Slide Review NO; Basophils Absolute Auto 0 /uL (0-100); Basophils Percent Auto 0.2 % (0-2); Eosinophils Absolute Auto 400 /uL (0-450); Eosinophils Percent Auto 2.7 % (2-4); Hematocrit 26.8 % (36-46); Hemoglobin 9.1 g/dL (12.0-16.0); Lymphocytes Absolute Auto 3700 /uL (1100-4500); Lymphocytes Percent Auto 25.8 % (25-40); Mean Corpuscular HGB Conc 33.9 % (30-36); Mean Corpuscular Hemoglobin 28.8 PG (26-34); Mean Corpuscular Volume 84.7 fL (80-100); Monocytes Absolute Auto 1200 /uL (0-900); Monocytes Percent Auto 8.2 % (3-14); Neutrophils Absolute Auto 9000 /uL (1500-7000); Neutrophils Percent Auto 63.1 % (50-75); Platelet Count 228 X10^3/uL (150-400); Red Blood Cell Count 3.17 X10^6/uL (4.0-5.2); White Blood Cell Count 14.2 X10^3/uL (4.5-11.0)
[2020-04-03 08:21] VITALS: BP 136/84
[2020-04-03] MEDS: DOCUSATE 250 MG CAPSULE PO (08:41)
[2020-04-03 08:58] VITALS: BP 124/69; PULSE 105; RESP 16; TEMP 37
--- NOTE | 2020-04-03 17:32 | PM.OBDS.1 ---
Discharge Providers Provider Date of admission: 03/29/20 16:44 Discharge Date: 04/03/20 Primary care physician: Gabby Ochoa MD Consults: 04/01/20 21:31 Consult to Broadcast News Producer Routine Comment: Discharge provider: Isela Arias MD Summary Hospital Course Date Patient Seen: 04/03/20 Time Patient Seen: 08:15 Procedures: Misoprostol cervical ripening Pitocin induction of labor Epidural analgesia Artificial rupture of membranes Primary low-transverse section Hospital Course: Patient is a 24-year-old 1 para 1 who presented on Wednesday for cervical ripening and then induction of labor due to headache, blurred vision, 3+ DTRs, and clonus. She underwent cervical ripening and then Pitocin induction of labor. On Wednesday April 01, 2020 she had progressed to the 5-6 cm. After several hours with adequate contractions, membranes ruptured, and Pitocin, she had not progressed any further. A decision was made to proceed with a primary low-transverse section. Her course was unremarkable. Peripartum Data Delivery Method: Section Laceration Description: None Episiotomy description: None Procedures: Misoprostol cervical ripening Pitocin induction of labor Epidural analgesia Artificial rupture of membranes Primary low-transverse section complications: none [place] 1: Gender: Male Disposition of : home Discharge Diagnosis (1) Preeclampsia: Status: Acute (2) delivery delivered: Status: Acute Status at Discharge Cognitive/behavioral status at discharge: oriented Functional status at discharge: independent ambulation Overall status at discharge: patient is progressing back to baseline Time Spent with Patient Time attestation: Total time spent providing and/or coordinating discharge services: Time spent: Less than 30 minutes Objective Labs Result Diagrams: 04/03/20 08:05 04/02/20 05:20 Labs: Laboratory Results - last 24 hr 04/03/20 08:05 WBC 14.2 H RBC 3.17 L Hgb 9.1 L Hct 26.8 L MCV 84.7 MCH 28.8 MCHC 33.9 RDW 14.0 Plt Count 228 Neut % (Auto) 63.1 Lymph % (Auto) 25.8 [place] % (Auto) 8.2 Eos % (Auto) 2.7 Baso % (Auto) 0.2 Neut # (Auto) 9000 H Lymph # (Auto) 3700 [place] # (Auto) 1200 H Eos # (Auto) 400 Baso # (Auto) 0 Exam Vital Signs (past 8 hours): Oxygen Delivery Method Room Air Oxygen Flow Rate 0 Discharge Plan Discharge Plan Patient Disposition: Home Provider Discharge Comment: Call with fever, chills, redness or drainage around the incision, or bleeding vaginally more than a pad in an hour Call with headache, blurred vision, or spots before her eyes Discharge orders & Medications Prescriptions: New oxycodone-acetaminophen [Percocet] 5-325 mg tablet 1 tab PO Q4-6H PRN (Reason: pain) Qty: 30 RF: 0 ibuprofen 600 mg tablet 600 mg PO Q6H PRN (Reason: Pain) Qty: 20 RF: 3 Continued Super Multiple - Low Iron 400 mcg tablet 1 mcg PO DAILY RF: 0 prenat.vits,joe,xio-zbej-vyfdd Tablet 1 tab PO DAILY RF: 0 Follow up/Referrals: Gabby Ochoa MD [Primary Care Provider] - (Incision check: Wednesday, @ 11am w/ Dr. Ochoa check-up: @ 10am w/ Dr. Ochoa) Diet/Activity/Treatments Diet: Regular Activity: No heavy lifting Skin/Wound/Dressing Care Report to your healthcare provider any signs of infection, such as:: chills, fever, increased pain, unusual drainage and unusual redness Dressing: Do not remove Visit Report/Discharge Packet Instructions: Pre-eclampsia, DI for , DI for Prescription Opioid Use Stand Alone Forms: Discharge: Care Visit Report Forms: Patient Portal/API, Stroke Signs & Symptoms Discharge Data Primary Care Provider: Gabby Ochoa Discharges patient from system. Discharge Date/Time: 04/03/20 11:48
== END 2020-04-03 11:48 | disposition home or self-care (01) | DRG 788 ==
PROVIDERS: Specialist; Admitting Provider Obstetrics & Gynecology; PCP Obstetrics & Gynecology; Referring Provider Obstetrics & Gynecology; Visit Provider Obstetrics & Gynecology
PROC: 10D00Z1 Extraction of Products of Conception, Low, Open Approach (ICD-10-PCS; CPT 59514; principal; 2020-04-01 17:00)
DX: O14.14 Severe pre-eclampsia complicating childbirth (principal); Z3A.36 36 weeks gestation of pregnancy; Z37.0 Single live birth; Z11.59 Encounter for screening for other viral diseases; O61.0 Failed medical induction of labor; M06.9 Rheumatoid arthritis, unspecified; O62.2 Other uterine inertia
CPT/HCPCS: 01967; 01968; 36415; 59050; 59200; 59514; 59515; 76819; 80053; 80076; 82570; 84156; 84450; 84550; 85025; 86850; 86900; 86901; 87635; 87653; G0379; J0690; J0702; J1650; J1885; J2274; J2405; J2590; S0191

== ENCOUNTER → 2020-03-29 17:00 | Outpatient (CLI) | payer OTHER, SELFPAY ==
[2020-03-30 13:16] LABS: Strep Grp B PCR NEG for Grp B Strep
== END ==
PROVIDERS: PCP Obstetrics & Gynecology; Visit Provider Obstetrics & Gynecology
DX: Z34.03 Encounter for supervision of normal first pregnancy, third trimester (principal); Z3A.36 36 weeks gestation of pregnancy
CPT/HCPCS: 87653